=== PATIENT | male | born 1960 | race Caucasian/White ===

== ENCOUNTER → 2019-08-02 10:10 | Outpatient (CLI) | payer BC, SELFPAY ==
[2019-08-02 11:17] LABS: Basophils # 0.1 K/mm3 (0-0.2); Basophils % 0.6 % (0.1-2.0); Eosinophils # 0.3 K/mm3 (0.0-0.4); Eosinophils % 2.9 % (0.1-12.0); Hematocrit 52.5 % (42.0-52.0); Hemoglobin 17.4 g/dL (14.1-18.0); Lymphocytes # 1.8 K/mm3 (0.7-4.5); Lymphocytes % 21.9 % (10-50); Mean Corpuscular HGB Conc 33.2 g/dL (31.8-35.4); Mean Corpuscular Hemoglobin 30.9 pg (27.0-31.2); Mean Corpuscular Volume 93.1 fl (80-94); Mean Platelet Volume 9.7 fl (7.4-10.4); Monocytes # 0.6 K/mm3 (0.1-1.0); Monocytes % 7.3 % (1.7-9.3); Neutrophils # 5.6 K/mm3 (1.8-7.8); Neutrophils % 67.3 % (37.0-80.0); Platelet Count 179 K/mm3 (142-424); Red Blood Count 5.63 M/mm3 (4.60-6.20); Red Cell Distribution Width 13.2 % (11.5-17.5); White Blood Count 8.4 K/mm3 (4.8-10.8)
[2019-08-02 13:27] LABS: Troponin I < 0.02 ng/ml (0.00-0.06)
[2019-08-02 13:30] LABS: Anion Gap 13.2 mEq/L (5-15); Blood Urea Nitrogen 15 mg/dL (7-18); Calcium 9.5 mg/dL (8.5-10.1); Carbon Dioxide 31 mmol/L (21.0-32.0); Chloride 102 mmol/L (98-107); Creatinine,Serum 1.08 mg/dL (0.70-1.30); Estimated Glomerular Filt Rate 71 ml/min (>60); Free Thyroxine Index 2.8 ug/dL (5.93-13.13); GFR (African American) 86 ML/MIN (>60); Glucose 78 mg/dL (74-106); Potassium 4.2 mmoL/L (3.5-5.1); Sodium 142 mmol/L (136-145); Thyroid Stimulating Hormone 2.76 uIU/ml (0.358-3.740); Triiodothryronine (T3) Uptake 35 % (31-39)
== END ==
PROVIDERS: Visit Provider Urology
DX: R07.9 Chest pain, unspecified (principal); R06.02 Shortness of breath; E78.5 Hyperlipidemia, unspecified; R42 Dizziness and giddiness; Z82.49 Family history of ischemic heart disease and other diseases of the circulatory system; E03.9 Hypothyroidism, unspecified
CPT/HCPCS: 80048; 84436; 84443; 84479; 84484; 85025

== ENCOUNTER → 2019-08-15 07:17 | Outpatient (CLI) | payer BC, SELFPAY ==
--- NOTE | 2019-08-15 | CA_ITS ---
APPROVED REPORT Exam: Exercise Treadmill Technologist: Cynthia Giraldo, Ht: 5 ft 7 in Wt: 185 lbs BSA: 1.96 m2 HR: 57 bpm BP: 138/83 mmHg Indications: Chest pain, Shortness of Breath Medical History Medications: Spiriva,,,,, Levothyroxine,,,,, Ranitidine,,,,, FeNOfibrate,,,,, BuPROPION,,,,, Dilofenac,,,,, Stress Test Details Test: Bryant HR Resting HR: 58 bpm Max Heart Rate (APMHR): 164 bpm Max HR Achieved: 142 bpm Target HR (85% APMHR): 139 bpm % of APMHR: 86 Recovery HR: 80 bpm BP Resting BP: 138.0/83.0 mmHg Max BP: 189.0/87.0 mmHg Recovery BP: 189.0/87.0 mmHg ECG Clinical Exercise duration: 09:56 min Highest Stage Achieved: Exercise capacity: 12.8 METs Stress ECG Conclusion Resting ECG: Sinus Bradycardia Bryant protocol completed. Patient exercised 9:56. Test stopped due to leg fatigue . Symptoms: Leg fatigue, resolved in recovery. No chest pain or shortness of breath. Arrhythmias/Ectopy: Occasional PVC ST-T Changes: Less than 1.5mm ST depression Conclusion: The EKG portion of the exercise treadmill Myoview is nondiagnostic due to baseline abnormal EKG. Test Summary REST . . . . . . . Sitting REST . . . . . . . Standing REST 03:15 0.0 0.0 58 . 138/ 83 . . Stage 1 01:00 10.0 1.7 80 . . . . Stage 1 02:00 10.0 1.7 87 . . . . Stage 1 03:00 10.0 1.7 87 . 140/ 80 . . Stage 2 01:00 12.0 2.5 93 . . . . Stage 2 02:00 12.0 2.5 97 . . . . Stage 2 03:00 12.0 2.5 100 . 152/ 84 . . Stage 3 01:00 14.0 3.4 116 . . . . Stage 3 02:00 14.0 3.4 123 . . . . Stage 3 03:00 14.0 3.4 128 . 162/ 88 . . Stage 4 00:56 16.0 4.2 142 . . . Stop exercise at 09:56 RECOVERY 01:00 0.0 0.0 120 . 170/ 90 . . RECOVERY 02:00 0.0 0.0 101 . 170/ 90 . . RECOVERY 03:00 0.0 0.0 91 . 173/ 94 . . RECOVERY 04:00 0.0 0.0 82 . 173/ 94 . . RECOVERY 05:00 0.0 0.0 78 . 189/ 87 . . RECOVERY 05:15 0.0 0.0 73 . 189/ 87 . . Electronically signed by : Jose Juan Whitehead, 08/15/2019 19:14:02
--- NOTE | 2019-08-15 07:18 | CA_ITS ---
APPROVED REPORT EXAM: Comprehensive 2D, Doppler, and color-flow Echocardiogram Hosiery Bagger: Sammi Morrow CRT Ht: 5 ft 8 in Wt: 184lbs BSA: 1.97 BP: 145/88 mmHg Indications: Chest Pain, Shortness of Breath, Hyperlipidemia,GERD, smoker 2D Dimensions LVOT 2.00 cm (M/F) 1.5-2.5 M-Mode Dimensions RVDd 2.00 cm (0.9-2.6) LA Diam 3.80 cm (1.9-4.0) LVDd 5.00 cm (3.5-5.7) Ao Diam 3.20 cm (2.0-3.7) LVDs 3.40 cm (3.5-5.7) AV Cusp 2.00 cm (1.5-2.6) IVSd 1.30 cm (0.6-1.1) PWd 0.80 cm (0.6-1.1) EF (Teich) 59.80% FS 32.00% EDV (Teich) 118.00 mL ESV (Teich) 47.40 mL LV Diastology E/A Ratio 1.80 MED E' 8.38 (< 7 cm/sec) E'/MED E' Ratio 9.20 (>14) LAT E' 8.77 (<10 cm/sec) E/LAT E' Ratio 8.80 (>14) Mitral Valve MV E Max Bob. 77.00 (40-130 cm/s) MV A Velocity 42.40 (40-130 cm/s) E/A Ratio 1.80 Pulmonary Valve MN End VMAX 68.80 cm/s PA Accel Time 102.00 (>120 msec) Tricuspid Valve TR P. Velocity 288.00 cm/s Left Ventricle Left atrium is normal sinus, left ventricle is normal size, there is no concentric left ventricular hypertrophy, visually estimated ejection fraction of 55% with no regional wall motion abnormality. Diastolic parameters are within normal range. Right Ventricle Right atrium and right ventricular normal size and contractility. Aortic Valve Aortic valve is grossly normal, there is no aortic stenosis aortic insufficiency. Mitral Valve Mitral valve is grossly normal, there is no mitral stenosis, there is mild mitral regurgitation. Tricuspid Valve Tricuspid valve is grossly normal, there is mild tricuspid regurgitation, tricuspid regurgitation jet velocity is inadequate for calculation of the right ventricular systolic pressure. Pulmonic Valve Pulmonic valve is poorly visualized. Great Vessels Aortic root is normal size. Pericardium No significant pericardial effusion noted. Conclusion 1. Normal left ventricular size, preserved left ventricular systolic function, visually estimated ejection fraction 55% with no regional wall motion abnormality, diastolic parameters are within normal range. 2. Mildly enlarged right ventricle with normal contractility. 3. Mild mitral and tricuspid regurgitation 4. No significant pericardial effusion noted. Electronically signed by : Jose Juan Whitehead, 08/18/2019 16:01:19
--- NOTE | 2019-08-15 07:18 | NM_ITS ---
APPROVED REPORT Exam: Nuclear Stress Test Indication: SOB, HTN, High Cholesterol, Tobacco use, Family history Patient Location: Outpatient Stress Tech: Cynthia Giraldo [place] Tech:Leanne Cotto, ARRT, RT (R)(N) Ht: 5 ft 7 in Wt: 185 lbs HR: 57 bpm BP: 138/83 mmHg BSA: 1.96 m2 BMI: 28.9 History: SOB, HTN, High Cholesterol, Tobacco use, Family history Procedure: Patient exercised on Bryant protocol 9:56 minutes and sec, resting heart rate 57 bpm, resting blood pressure 138/83 mmHg, with exercise maximum heart rate achived was 142 bpm which is Greater than 85 % of the maximum predicted heart rate and blood pressure was 162/88 mmHg. Test was stopped due to leg fatigue. Patient denied any complaint of chest pain. Patient has Good exercise capacity, achieved 12.8 METs of workload on treadmill, the blood pressure response to exercise was Adequate. Electrocardiogram Resting electro cardiogram showed sinus rhythm, nonspecific ST-T changes, with exercise there is less than 1.[address] segment depression noted from the baseline EKG. The EKG portion of the exercise Myoview is nondiagnostic due to baseline abnormal EKG. Cardiac Stress and Resting SPECT Images: Cardiac Stress and Resting SPECT images were obtained using technetium 99m Myoview 31.2 mCi stress and 9.78 mCi at rest. Gated SPECT with analysis of segmental wall motion and calculation of the ejection fraction also done. Cardiac stress and resting SPECT images show uniform myocardial activity without segmental perfusion abnormality, computer derived ejection fraction is over 65% with no regional wall motion abnormality, right ventricle is normal size and contractility. Conclusion: 1. The EKG portion of the exercise Myoview is nondiagnostic due to baseline abnormal EKG, patient has good exercise capacity achieved 12.8 mets of workload on treadmill, the blood pressure response to exercise was adequate, there was no exercise-induced chest discomfort. 2. No scintigraphic evidence of reversible ischemia seen, computer derived ejection fraction is over 65% with no regional wall motion abnormality, right ventricle is normal size and contractility. 3. Normal exercise Myoview study. Electronically signed by : Jose Juan Whitehead, 08/15/2019 19:16:56
--- NOTE | 2019-08-15 07:31 | HMH.ITSHM ---
Current Home Medications as stated by this patient Ry Anderson or termite control representative. []SPIRIVA RANITIDINE FENOFIBRATE DICLOFENAC LEVOTHYROXINE BUPROPION
== END ==
PROVIDERS: PCP Nurse Practitioner Family; Visit Provider Urology
DX: E78.5 Hyperlipidemia, unspecified (principal); R06.02 Shortness of breath; R07.9 Chest pain, unspecified
CPT/HCPCS: 78452; 93017; 93306; A9502

== ENCOUNTER → 2022-12-02 09:50 | Outpatient (CLI) | payer BC, SELFPAY ==
[2022-12-02 17:39] LABS: MANUAL DIFFERENTIAL MANUAL DIFFERENTIAL (MANUAL DIFF)
[2022-12-02 17:53] LABS: Basophils # 0.1 K/mm3 (0-0.2); Basophils % 0.6 % (0.1-2.0); Eosinophils # 0.2 K/mm3 (0.0-0.4); Eosinophils % 1.8 % (0.1-12.0); Hematocrit 53.7 % (42.0-52.0); Hemoglobin 17.1 g/dL (14.1-18.0); Lymphocytes # 1.9 K/mm3 (0.7-4.5); Mean Corpuscular HGB Conc 31.9 g/dL (31.8-35.4); Mean Corpuscular Hemoglobin 30.9 pg (27.0-31.2); Mean Platelet Volume 11.9 fl (7.4-10.4); Monocytes # 0.6 K/mm3 (0.1-1.0); Monocytes % 5.8 % (1.7-9.3); Neutrophils # 7.2 K/mm3 (1.8-7.8); Neutrophils % 72.8 % (37.0-80.0); Platelet Count 213 K/mm3 (142-424); Red Blood Count 5.53 M/mm3 (4.60-6.20); Red Cell Distribution Width 13.4 % (11.5-17.5); White Blood Count 9.9 K/mm3 (4.8-10.8)
[2022-12-02 18:02] LABS: Alanine Aminotransferase 20 U/L (12-78); Albumin Level 4.2 g/dl (3.5-5.0); Albumin/Globulin Ratio 1.6 (1.1-1.8); Alkaline Phosphatase 112 U/L (38-126); Anion Gap 9.1 mEq/L (5-15); Aspartate Amino Transferase 27 U/L (17-59); Bilirubin,Total 0.6 mg/dl (0.2-1.3); Blood Urea Nitrogen 12 mg/dl (9-20); Calcium 9.3 mg/dl (8.4-10.2); Carbon Dioxide 31 mmol/L (22.0-30.0); Chloride 104 mmol/L (98-107); Chol/HDL Ratio 6.3 (1-3.5); Cholesterol 209 mg/dl (140-200); Estimated Glomerular Filt Rate 86 ml/min (>60); GFR (African American) 104 ML/MIN (>60); Globulin 2.6 g/dL (1.3-3.2); Glucose 99 mg/dl (74-100); HDL Cholesterol 33 mg/dl (40-60); Potassium 5.1 mmoL/L (3.5-5.1); Sodium 139 mmol/L (136-145); Total Protein,Serum 6.8 g/dl (6.3-8.2); Triglycerides 163 mg/dl (30-150); VLDL Cholesterol 33 mg/dL (0-40)
[2022-12-02 18:12] LABS: Lymphocytes % 15 % (10-50); Monocytes % 7 % (2-9); Neutrophils % 78 % (42-76); Platelet Estimate Normal; RBC Morphology Normal; Total Cells Counted 100
[2022-12-02 18:13] LABS: Direct LDL Cholesterol 128.66 mg/dL (100-129)
[2022-12-02 18:17] LABS: Free T4 (Free Thyroxine) 1.04 ng/dl (0.78-2.19)
[2022-12-02 18:32] LABS: Thyroid Stimulating Hormone 3.35 uIU/mL (0.465-4.68)
== END ==
PROVIDERS: PCP Nurse Practitioner Family; Visit Provider Nurse Practitioner Family
DX: E78.2 Mixed hyperlipidemia (principal); E78.5 Hyperlipidemia, unspecified
CPT/HCPCS: 80053; 80061; 84439; 84443; 85007; 85014; 85018; 85048; 85049

== ENCOUNTER → 2022-12-10 13:57 | Outpatient (CLI) | payer BC, SELFPAY ==
--- NOTE | 2022-12-10 14:04 | CT_ITS ---
FINAL REPORT CLINICAL HISTORY: lung cancer screening current smoker 1 pack per day for 30 years pt has copd FINDINGS: Low-Dose Chest CT Axial images were obtained from the lung apex to the mid abdomen by computed tomography. Low-dose protocol was utilized. CTDI vol (mGy): 2.90 DLP (mGy-cm): 102.12 There is no axillary adenopathy. There is no hilar or mediastinal adenopathy. The heart is proper size. There is no pericardial or pleural effusion. Lung window images demonstrate a 3 mm right upper lobe nodule abutting the major fissure. There is another 3 mm right upper lobe nodule seen on image 51 as well as a 3 mm right upper lobe nodule laterally seen on image 35. The left lung is clear. There are mild changes of emphysema. Limited images of the upper abdomen are unremarkable. IMPRESSION: Benign-appearing right upper lobe nodules up to 3 mm, favor granulomas. Lung RADS category 2. Recommend 12 month follow-up low-dose chest CT. Reviewed, Interpreted and Dictated by Eze Vazquez MD Transcribed by Nata Neal Authenticated and . [facility]
== END ==
PROVIDERS: PCP Nurse Practitioner Family; Visit Provider Nurse Practitioner Family
DX: Z87.891 Personal history of nicotine dependence (principal); Z12.2 Encounter for screening for malignant neoplasm of respiratory organs; Z71.6 Tobacco abuse counseling
CPT/HCPCS: 71271

== ENCOUNTER → 2023-06-09 07:56 | Outpatient (CLI) | payer BC, SELFPAY ==
--- NOTE | 2023-06-09 07:59 | US_ITS ---
FINAL REPORT TECHNIQUE: Multiple transverse and longitudinal images CLINICAL HISTORY: RUQ pain, worse with meals COMPARISON: None FINDINGS: The gallbladder shows no wall thickening, distention or stone disease. No biliary ductal dilatation is appreciated. No fluid collections are seen. There is increased echogenicity in the liver compatible with fatty infiltration of the liver. Limited portions of the right kidney are unremarkable. The right kidney measures 9.9 cm in length. IMPRESSION: No evidence of cholelithiasis or biliary obstruction. Fatty infiltration of the liver. Reviewed, Interpreted and Dictated by Eze Vazquez MD Transcribed by Justina Vega Authenticated and [facility]
== END ==
PROVIDERS: PCP Family Medicine; Visit Provider Nurse Practitioner Family
DX: R10.11 Right upper quadrant pain (principal)
CPT/HCPCS: 76705

== ENCOUNTER 2024-02-09 20:31 | Outpatient (CLI) | payer BC, SELFPAY ==
[2024-02-09 17:59] LABS: Basophils # 0.1 K/mm3 (0-0.2); Eosinophils # 0.3 K/mm3 (0.0-0.4); Eosinophils % 3.5 % (0.1-12.0); Hematocrit 52.6 % (42.0-52.0); Lymphocytes # 2.1 K/mm3 (0.7-4.5); Lymphocytes % 29.8 % (10-50); Mean Corpuscular HGB Conc 32.4 g/dL (31.8-35.4); Mean Corpuscular Volume 98.9 fl (80-94); Mean Platelet Volume 12.4 fl (7.4-10.4); Monocytes # 0.4 K/mm3 (0.1-1.0); Neutrophils # 4.2 K/mm3 (1.8-7.8); Neutrophils % 59.6 % (37.0-80.0); Platelet Count 175 K/mm3 (142-424); Red Blood Count 5.31 M/mm3 (4.60-6.20); Red Cell Distribution Width 13.7 % (11.5-17.5)
[2024-02-09 18:48] LABS: Chloride 106 mmol/L (98-107); Sodium 141 mmol/L (136-145)
[2024-02-09 18:49] LABS: Potassium 4.5 mmoL/L (3.5-5.1)
[2024-02-09 18:51] LABS: Alanine Aminotransferase 27 U/L (12-78); Albumin Level 4.3 g/dl (3.5-5.0); Albumin/Globulin Ratio 1.8 (1.1-1.8); Alkaline Phosphatase 80 U/L (38-126); Anion Gap 11.5 mEq/L (5-15); Aspartate Amino Transferase 30 U/L (17-59); Bilirubin,Total 0.4 mg/dl (0.2-1.3); Blood Urea Nitrogen 18 mg/dl (9-20); Carbon Dioxide 28 mmol/L (22.0-30.0); Cholesterol 182 mg/dl (140-200); Estimated Glomerular Filt Rate 86 ml/min (>60); GFR (African American) 104 ML/MIN (>60); Globulin 2.4 g/dL (1.3-3.2); Glucose 101 mg/dl (74-100); Total Protein,Serum 6.7 g/dl (6.3-8.2); Triglycerides 249 mg/dl (30-150); VLDL Cholesterol 50 mg/dL (0-40)
[2024-02-09 18:52] LABS: Chol/HDL Ratio 4.8 (1-3.5); HDL Cholesterol 38 mg/dl (40-60)
[2024-02-09 19:27] LABS: Direct LDL Cholesterol 82.73 mg/dL (100-129)
== END 2024-02-09 23:59 ==
LOC: LAB.DROPOF 20:33
PROVIDERS: PCP Family Medicine; Visit Provider Family Medicine
DX: E78.2 Mixed hyperlipidemia (principal)
CPT/HCPCS: 80053; 80061; 85025